=== PATIENT | female | born 1985 | race Asian ===

== ENCOUNTER 2020-04-28 18:19 | Inpatient (IN) ==
[2020-04-28] MEDS ORDERED: Buffered Lidocaine 1% SYRIN 1 ml INTRADERM ONE (20:01)
[2020-04-28] MEDS ORDERED: Lactated Ringers 1000 ml BAG 1,000 ML IV ONE (20:01)
[2020-04-28] MEDS ORDERED: Dinoprostone 10 MG VAG.SUPP VAGINAL ONE (20:01)
[2020-04-28] MEDS ORDERED: Lactated Ringers 1000 ml BAG 1,000 ML IV SCH (21:00)
[2020-04-28 21:29] LABS: Urine Benzodiazepine Screen None Detected (None Detect); Urine Cannabinoids Screen None Detected (None Detect); Urine Opiates Screen None Detected (None Detect)
[2020-04-29] MEDS ORDERED: Oxytocin in LR 20 UNITS/1,000 ML BAG IVPB SCH ×2 (09:00→17:00)
[2020-04-29 09:56] LABS: ABS Eosinophils 0.1 10^3/ul (0-0.6); ABS Lymphocytes 1.9 10^3/ul (1.0-4.8); ABS Monocytes 0.9 10^3/ul (0-0.8); ABS Neutrophils 6.4 10^3/ul (1.5-7.7); Hematocrit 38 % (35-47); Lymphocyte % 20.4 %; Mean Corpuscular HGB Conc 34 g/dL (31-36); Mean Corpuscular Hemoglobin 33 pg (27-31); Mean Corpuscular Volume 96 fL (80-97); Mean Platelet Volume 9.2 fL (7.4-10.4); Platelet Count 243 10^3/uL (150-450); Red Blood Count 3.98 10^6 /uL (3.70-4.87); Red Cell Distribution Width 14 % (10-15); White Blood Count 9.4 10^3/uL (3.5-10.8)
[2020-04-29] MEDS ORDERED: OBEPIDURAL 250 ML EPIDURAL ONE (09:57)
[2020-04-29] MEDS ORDERED: EPHEDrine (Pressors) 50 MG/ML VIAL IV PUSH PRN (11:49)
[2020-04-29] MEDS ORDERED: Lactated Ringers 1000 ml BAG 1,000 ML IV ONE (11:49)
[2020-04-29] MEDS ORDERED: Phenylephrine 40 mcg/mL 10mL (400mcg) SYRINGE IV PUSH PRN (11:49)
[2020-04-29] MEDS ORDERED: Lactated Ringers 1000 ml BAG 500 ML IV PRN (11:49)
[2020-04-29] MEDS ORDERED: Sodium Citrate/Citric Acid LIQ 15 ML UDC PO PRN (11:49)
[2020-04-29] MEDS ORDERED: OBEPIDURAL 250 ML EPIDURAL SCH (12:00)
[2020-04-29] MEDS ORDERED: Lactated Ringers 1000 ml BAG 1,000 ML IV SCH ×2 (12:00→17:00)
[2020-04-29] MEDS ORDERED: Methylergonovine 0.2 mg AMPULE 1 ml AMP ONE (16:35)
[2020-04-29] MEDS ORDERED: Dibucaine 1% OINT 28.35 GM TUBE PR PRN (16:42)
[2020-04-29] MEDS ORDERED: Witch Hazel PAD JAR TOPICAL PRN (16:42)
[2020-04-29] MEDS ORDERED: Methylergonovine 0.2 mg AMPULE 1 ml AMP IM ONE (16:42)
[2020-04-29] MEDS ORDERED: Glycerin ADULT 2.4 gm SUPP PR PRN (16:42)
[2020-04-30 07:25] LABS: ABS Eosinophils 0.1 10^3/ul (0-0.6); ABS Lymphocytes 1.8 10^3/ul (1.0-4.8); ABS Monocytes 0.9 10^3/ul (0-0.8); ABS Neutrophils 9.8 10^3/ul (1.5-7.7); Eosinophil % 1.1 %; Hematocrit 33 % (35-47); Hemoglobin 11.1 g/dL (12.0-16.0); Lymphocyte % 13.9 %; Mean Corpuscular HGB Conc 34 g/dL (31-36); Mean Corpuscular Hemoglobin 33 pg (27-31); Mean Corpuscular Volume 96 fL (80-97); Platelet Count 195 10^3/uL (150-450); Red Cell Distribution Width 13 % (10-15); White Blood Count 12.6 10^3/uL (3.5-10.8)
[2020-05-01 10:20] VITALS: BP 119/75
== END 2020-05-01 13:04 | disposition home or self-care (01) | DRG 807 ==
LOC: MCHOBOUT 18:19 → MCHOB 20:08
PROVIDERS: ADMIT Obstetrics & Gynecology; ATTEND Obstetrics & Gynecology